=== PATIENT | male | born 1955 | race Caucasian/White ===

== ENCOUNTER 2016-07-15 10:26 | Emergency (ER) | payer BC ==
[~2016-07-15] VITALS: Ht 193 cm; Wt 107.2 kg
[2016-07-15] MEDS ORDERED: PERCOCET 5/31 TABLET PO (13:38)
[2016-07-15 14:00] VITALS: BP 140/83
== END 2016-07-15 14:27 | disposition home or self-care (01) ==
LOC: EME 10:26
DX: S82.851A Displaced trimalleolar fracture of right lower leg, initial encounter for closed fracture (principal); W01.0XXA Fall on same level from slipping, tripping and stumbling without subsequent striking against object, initial encounter; I10 Essential (primary) hypertension; E78.5 Hyperlipidemia, unspecified; Z98.1 Arthrodesis status; Z85.820 Personal history of malignant melanoma of skin
CPT/HCPCS: 73610; 73630; 99281; 99285; J7030

== ENCOUNTER 2016-07-20 15:51 | Observation (INO) | payer BC ==
[~2016-07-20] VITALS: Ht 193 cm; Wt 107.0 kg
[~2016-07-20 15:51] MED LIST: PERCOCET 5/31 TABLET PO
[2016-07-20 16:43] LABS: HEMATOCRIT 41.3 % (38.0-50.0); MCH 31.7 PG (29.0-34.0); MCHC 33.9 G/DL (30.0-36.0); MCV 93.4 FL (86-99); MEAN PLAT.VOLUME 9.4 uM^3 (9.0-12.4); PLATELET COUNT 413 K/uL (156-360); RBC DIS.WIDTH-SD 44.6 % (39-53); RED BLOOD COUNT 4.42 M/uL (4.00-5.50); WHITE BLOOD COUNT 13.1 K/uL (4.1-10.2)
[2016-07-20 16:56] LABS: CHLORIDE 107 mEq/L (99-109); POTASSIUM 4.4 mEq/L (3.7-5.4); SODIUM 141 mEq/L (136-147)
[2016-07-20 16:58] LABS: GLUCOSE 174 mg/dL (70-99)
[2016-07-20 16:59] LABS: ANION GAP 15 MEQ/L (2-14)
[2016-07-20 17:00] LABS: TOTAL BILIRUBIN 0.4 mg/dL (0.0-1.0)
[2016-07-20 17:02] LABS: ALKALINE PHOSPHATASE 43 IU/L (3-129); GFR ESTIMATE (CALCULATED) > 59 mL/min/
[2016-07-20 17:03] LABS: DIRECT BILIRUBIN 0.1 mg/dL (0.0-0.3); UREA NITROGEN (BUN) 19 mg/dL (9-23)
[2016-07-20 17:05] LABS: LIPASE 7 U/L (1.0-51.0)
[2016-07-20 17:12] LABS: INTER. NORMALIZED RATIO 1.2; PROTHROMBIN TIME 12.2 (9.2-11.2)
[2016-07-20] MEDS ORDERED: FENOFIBRATE160 M1 PO (18:41)
[2016-07-20] MEDS ORDERED: SIMVASTATIN40 MG PO (18:41)
[2016-07-20] MEDS ORDERED: CITALOPRAM HBR10 MG PO (18:41)
[2016-07-20] MEDS ORDERED: PROTONIX40 MG PO (18:42)
[2016-07-20] MEDS ORDERED: ATENOLOL25 MG PO (18:42)
[2016-07-20] MEDS ORDERED: DICLOFENAC SOD100 G1 TP (18:43)
[2016-07-20] MEDS ORDERED: TYLENOL ARTHRI650 MG PO (18:44)
[2016-07-20 21:43] LABS: POINT-OF-CARE METER ID UU13113702
[2016-07-20 21:48] LABS: HEMATOCRIT 39.8 % (38.0-50.0); MCH 30.9 PG (29.0-34.0); MCHC 33.2 G/DL (30.0-36.0); MCV 93.2 FL (86-99); MEAN PLAT.VOLUME 9.2 uM^3 (9.0-12.4); PLATELET COUNT 388 K/uL (156-360); RBC DIS.WIDTH-CV 13.2 % (11.8-14.6); RBC DIS.WIDTH-SD 44.9 % (39-53); RED BLOOD COUNT 4.27 M/uL (4.00-5.50); WHITE BLOOD COUNT 11.6 K/uL (4.1-10.2)
[2016-07-20 22:09] LABS: TROP-I INTERPRETATION NEGATIVE; TROPONIN-I < 0.01 ng/mL (0.0-0.30)
[2016-07-20 23:56] VITALS: BP 157/86
[2016-07-21 04:19] VITALS: BP 150/79
[2016-07-21 04:50] LABS: HEMATOCRIT 37.9 % (38.0-50.0); MCV 92.7 FL (86-99)
[2016-07-21 05:10] LABS: CHLORIDE 109 mEq/L (99-109); POTASSIUM 3.8 mEq/L (3.7-5.4); SODIUM 143 mEq/L (136-147)
[2016-07-21 05:12] LABS: GLUCOSE 121 mg/dL (70-99); TROP-I INTERPRETATION NEGATIVE; TROPONIN-I < 0.01 ng/mL (0.0-0.30)
[2016-07-21 05:14] LABS: ANION GAP 14 MEQ/L (2-14)
[2016-07-21 05:16] LABS: ALKALINE PHOSPHATASE 40 IU/L (3-129); GFR ESTIMATE (CALCULATED) > 59 mL/min/; TOTAL BILIRUBIN 0.5 mg/dL (0.0-1.0)
[2016-07-21 05:17] LABS: UREA NITROGEN (BUN) 15 mg/dL (9-23)
[2016-07-21 08:04] LABS: POINT-OF-CARE METER ID UU13113702
[2016-07-21 08:54] VITALS: BP 163/77
[2016-07-21 09:41] LABS: ADD MIUA? NO; BILIRUBIN NEGATIVE; BLOOD NEGATIVE; COLOR YELLOW ((YELLOW)); GLUCOSE (STRIP) NEGATIVE; KETONES NEGATIVE; LEUKOCYTES NEGATIVE; NITRITE NEGATIVE; PROTEIN (STRIP) NEGATIVE; SPECIFIC GRAVITY 1.024 (1.000-1.030); UCUL ADDED? NO; UROBILINOGEN 0.2 MG/DL (0.2-1.0)
[2016-07-21 10:50] LABS: TROP-I INTERPRETATION NEGATIVE; TROPONIN-I < 0.01 ng/mL (0.0-0.30)
[2016-07-21 12:08] VITALS: BP 143/83
[2016-07-21 15:30] VITALS: BP 136/77
[2016-07-21 19:29] VITALS: BP 132/75
[2016-07-21 22:13] LABS: EOSINOPHIL (%) 0.6 % (0-5); EOSINOPHIL COUNT 0.1 K/uL (0-0.3); HEMATOCRIT 35.3 % (38.0-50.0); IMMATURE GRANULOCYTE (%) 0.2 % (0.0-0.7); INSTRUMENT ABS NEUTROPHIL CT 5.6 K/uL; LYMPHOCYTE COUNT 2.5 K/uL (1.0-2.8); MCH 31.4 PG (29.0-34.0); MCHC 32.9 G/DL (30.0-36.0); MCV 95.4 FL (86-99); MEAN PLAT.VOLUME 9.1 uM^3 (9.0-12.4); MONOCYTE (%) 9.1 % (3-12); MONOCYTE COUNT 0.8 K/uL (0-0.8); NEUTROPHIL (%) 62.1 % (45-76); NEUTROPHIL COUNT 5.6 K/uL (1.8-6.4); PLATELET COUNT 351 K/uL (156-360); RBC DIS.WIDTH-CV 13.4 % (11.8-14.6); RBC DIS.WIDTH-SD 47.3 % (39-53)
[2016-07-21 23:29] VITALS: BP 121/75
[2016-07-22 04:25] VITALS: BP 122/69
[2016-07-22 07:03] VITALS: BP 155/82
[2016-07-22 07:18] LABS: EOSINOPHIL (%) 1.5 % (0-5); EOSINOPHIL COUNT 0.1 K/uL (0-0.3); IMMATURE GRANULOCYTE (%) 0.2 % (0.0-0.7); INSTRUMENT ABS NEUTROPHIL CT 5.9 K/uL; MCHC 32.5 G/DL (30.0-36.0); MCV 95.2 FL (86-99); MEAN PLAT.VOLUME 9.4 uM^3 (9.0-12.4); MONOCYTE (%) 6.5 % (3-12); MONOCYTE COUNT 0.6 K/uL (0-0.8); NEUTROPHIL (%) 68.3 % (45-76); NEUTROPHIL COUNT 5.9 K/uL (1.8-6.4); PLATELET COUNT 322 K/uL (156-360); RBC DIS.WIDTH-CV 13.4 % (11.8-14.6); RBC DIS.WIDTH-SD 47.1 % (39-53); RED BLOOD COUNT 3.78 M/uL (4.00-5.50); WHITE BLOOD COUNT 8.6 K/uL (4.1-10.2)
[2016-07-22 07:44] LABS: ANION GAP 8 MEQ/L (2-14); CHLORIDE 107 MEQ/L (99-109); GFR ESTIMATE (CALCULATED) > 59 mL/min/; GLUCOSE 101 mg/dL (70-99); POTASSIUM 3.9 MEQ/L (3.7-5.4); SAMPLE HEMOLYSIS CHECK 0; SAMPLE ICTERIC CHECK 0; SAMPLE LIPEMIA CHECK 0; SODIUM 142 MEQ/L (136-147); UREA NITROGEN (BUN) 14 mg/dL (9-23)
[2016-07-22 11:45] VITALS: BP 131/78
== END 2016-07-22 15:55 | disposition home or self-care (01) ==
LOC: EME → EDBD 15:51 → 5WEST 20:57 → EDOF 20:57 → 5WEST 23:25
PROVIDERS: Emergency Medicine; Hospitalist
DX: K22.6 Gastro-esophageal laceration-hemorrhage syndrome (principal); I10 Essential (primary) hypertension; E78.5 Hyperlipidemia, unspecified; N40.1 Benign prostatic hyperplasia with lower urinary tract symptoms; K76.0 Fatty (change of) liver, not elsewhere classified; R33.8 Other retention of urine; Z87.11 Personal history of peptic ulcer disease
CPT/HCPCS: 71010; 74177; 80048; 80053; 80076; 81003; 82140; 82948; 83605; 83690; 84484; 85014; 85018; 85025; 85027; 85610; 86900; 86901; 99281; 99285; C9113; G0378; J2405; J7030; J7120

== ENCOUNTER 2016-12-12 13:08 | Day surgery (SDC) | payer BC ==
[~2016-12-12] VITALS: Ht 193 cm; Wt 104.3 kg
[~2016-12-12 13:08] MED LIST changes: +ATENOLOL25 MG PO; +CELEXA20 MG PO; +CITALOPRAM HBR10 MG PO; +CYANOCOBALAM1000 MCG PO; +DICLOFENAC SOD100 G1 TP; +FENOFIBRATE160 M1 PO; +GLUCOSAMINE &1 EAC1 PO; +LO-DOSE ASPIRIN81 M2 PO; +MEN'S MULTI-VI1 EACH PO; +NIACOR500 MG PO; +PROTONIX40 MG PO; +SIMVASTATIN40 MG PO; +SYNTHROID50 MCG PO; +TYLENOL ARTHRI650 MG PO; +VITAMIN D35000 UNIT PO
[2016-12-12 13:36] VITALS: BP 146/93
[2016-12-12 13:53] VITALS: BP 146/93
[2016-12-12 15:45] VITALS: BP 142/82
[2016-12-12 15:59] VITALS: BP 1472/83
[2016-12-12 16:40] VITALS: BP 142/82
[2016-12-14 16:38] LABS: CHOLINESTERASE 5675 IU/L (3342-7586)
== END 2016-12-12 16:45 | disposition home or self-care (01) ==
LOC: SDC 13:08
PROVIDERS: Nurse Practitioner Family
PROC: 0SPF04Z Removal of Internal Fixation Device from Right Ankle Joint, Open Approach (ICD-10-PCS; principal; 2016-12-12)
DX: Z47.2 Encounter for removal of internal fixation device (principal); I10 Essential (primary) hypertension; E78.00 Pure hypercholesterolemia, unspecified; K21.9 Gastro-esophageal reflux disease without esophagitis; N40.0 Benign prostatic hyperplasia without lower urinary tract symptoms; K44.9 Diaphragmatic hernia without obstruction or gangrene; Z85.820 Personal history of malignant melanoma of skin
CPT/HCPCS: 73600; 76000; 82480 90; J0690; J1100; J2405